=== PATIENT | female | born 1980 | race Two or more races ===

== ENCOUNTER → 2016-06-25 | Outpatient (CLI) | payer BC ==
[2016-06-25 14:03] LABS: Basophils # (A) 0.1 k/uL (0-0.2); Basophils % (A) 1 %; CH 27.6; CHCM 31.9; Eosinophils # (A) 0.2 k/uL (0-0.7); Eosinophils % (A) 2 %; HCT 39.5 % (34.0-46.0); HDW 2.43; HGB 12.7 gm/dL (11.4-16.0); Luc # (Auto) 0.29; Luc % (Auto) 4; Lymphocytes # (A) 2.3 k/uL (1.0-4.8); Lymphocytes % (A) 34 %; MCH 27.8 pg (25.0-35.0); MCHC 32.1 g/dL (31.0-37.0); MCV 86.8 fL (80.0-100.0); Monocytes # (A) 0.3 k/uL (0-1.0); Monocytes % (A) 5 %; Neutrophils # (A) 3.8 k/uL (1.3-7.7); Neutrophils % (A) 54 %; RBC 4.55 m/uL (3.80-5.40); WBC (Perox) 7.26
== END | disposition home or self-care (01) ==
LOC: LABPAT 12:07
PROVIDERS: ATTEND Obstetrics & Gynecology
DX: Z01.818 Encounter for other preprocedural examination (principal)
CPT/HCPCS: 85025

== ENCOUNTER 2016-07-01 06:19 | Day surgery (SDC) | payer BC ==
[2016-06-27 15:55] VITALS: BMI 19.5
--- NOTE | 2016-06-30 07:52 | P.HPOB ---
History of Present Illness H&P Date: 06/30/16 Chief Complaint: High grade pap smear. This patient is a pleasant 35yr old female who has had 2 pap smears that could not rule out high grade cervical dysplasia ( and ). Colposcopy only demonstrated SAMANTHA I. She now presents for colposcopy and LEEP excision of the cervix due to this discrepancy. Review of Systems Constitutional: Denies chills, Denies fever Ears, nose, mouth and throat: Denies headache, Denies sore throat Cardiovascular: Denies chest pain, Denies shortness of breath Respiratory: Denies cough Gastrointestinal: Denies abdominal pain, Denies diarrhea, Denies nausea, Denies vomiting Genitourinary: Reports as per HPI Musculoskeletal: Denies myalgias Past Medical History Past Medical History: Eye Disorder Additional Past Medical History / Comment(s): Jajw-Anlpjhwz-Xyodjh syndrome, bilateral (non-genetic) History of Any Multi-Drug Resistant Organisms: None Reported Past Surgical History: Breast Surgery Additional Past Surgical History / Comment(s): Patient has had bilateral breast augmentation surgery, right breast biopsy Past Anesthesia/Blood Transfusion Reactions: No Reported Reaction Past Psychological History: No Psychological Hx Reported Smoking Status: Never smoker Past Alcohol Use History: None Reported Past Drug Use History: None Reported - Past Family History Mother Family Medical History: No Reported History Medications and Allergies Home Medications Medication Instructions Recorded Confirmed Type Multivit with Calcium,Iron,Min 1 each PO DAILY 06/27/16 06/27/16 History [Women's Multivitamin] Allergies Allergy/AdvReac Type Severity Reaction Status Date / Time No Known Allergies Allergy Verified 06/27/16 14:42 Exam - OBG Physical Exam Abdomen: bowel sounds normal, no diffuse tenderness, no bruit present, no guarding noted, no hepatomegaly, no splenomegaly, no mass Vulva: both: normal Vagina: normal moisture, no discharge Cervix: no lesion, no discharge Uterus: normal size, normal contour Adnexa: both: normal Results Pap smears showed LGSIL, could not rule out HGSIL times 2. Colpo showed ectocervical SAMANTHA I. Assessment and Plan (1) Pap smear cannot exclude high grade squamous intraepithelial lesion (ASC-H) Narrative/Plan: This is a pleasant 35 yr female with possible HGSIL on pap times 2, with discrepant colposcopy. Plan is to proceed with colposcopy and LEEP excision for the endo and ectocervix. I have discussed this surgery in detail with the patient, including the risks: infection, bleeding, possible cervical incompetence with future loss. All of the patients questions were answered and a written consent obtained. Status: Chronic
[~2016-07-01 06:19] MED LIST: DEXAMETHASONE SOD PHOSPHATE 10 MG/ML 1 ML VIAL IV ONE; HYDROmorphone 1 MG/ML 1 ML SYRINGE IVP PRN; LACTATED RINGERS 1,000 ML IV SCH; ONDANSETRON 4 MG/2 ML VIAL IVP ONE; Pre Op ABX Message 1 EACH MISC MISCELLANE ONE
[2016-07-01] MEDS ORDERED: LIDOCAINE 1% 20 ML VIAL (10MG/ML) FOR IV START INTRADERMA ONE (06:41)
[2016-07-01] MEDS ORDERED: PROPOFOL 10 MG/ML 20 ML VIAL IV ONE (07:21)
[2016-07-01] MEDS ORDERED: fentaNYL (PF) 50 MCG/ML 2 ML AMP ONE (07:21)
[2016-07-01] MEDS ORDERED: MIDAZOLAM 2 MG/2 ML VIAL ONE (07:21)
[2016-07-01] MEDS ORDERED: LIDOCAINE 1% INJ 10MG/ML (20 ML MDV) ONE (07:21)
[2016-07-01] MEDS ORDERED: FERRIC SUBSULFATE (MONSELS) JAR TOPICAL ONE (07:42)
[2016-07-01] MEDS ORDERED: IODINE/POTASS IOD (LUGOLS) BTL TOPICAL ONE (07:42)
--- NOTE | 2016-07-01 07:49 | P.OP ---
Date of Procedure: 07/01/16 Preoperative Diagnosis: High-grade cervical dysplasia on a Pap smear with discrepant colposcopy Postoperative Diagnosis: Same Procedure(s) Performed: Colposcopy with LEEP excision of the ectocervix endocervix. Anesthesia: MAC Surgeon: Chase Bonilla Estimated Blood Loss (ml): 10 Urine output (ml): 25 Pathology: other (Ectocervix and endocervix.) Condition: stable Disposition: PACU Indications for Procedure: Please see dictated H&P for intimate details of this patient's admission. Brief summary this is a pleasant 35-year-old 1 para 1 female with low- grade cervical dysplasia on colposcopy however with 2 Pap smears that could not rule out high-grade changes. Patient now presents for LEEP excision of this area due to these discrepancies. Patient does understand the surgery and risks including risks of infection, bleeding, possible cervical incompetence if she does become in the future. All the patient's questions are answered written consent is obtained. Description of Procedure: This patient is taken to the operating room where she is laid in the supine position. She subsequently goes under general mask anesthesia without incident. With an adequate level of anesthesia she's placed in the dorsal lithotomy position. She has a vaginal perineal prep and drape. The bladder is drained at this time for 25 mL of clear urine. I place a laser speculum into the vagina. Colposcopy is then performed area of abnormality is demarcated. Using a large LEEP loop I excise the transformation zone. A second pass of the small LEEP loop is done. Cauterization is done of the ectocervix endocervical margins. Hemostasis is noted this time. I Did Pl., Monsel solution on the cervix for added hemostasis. All counts are correct 3. No complications. Patient is taken to the recovery room in satisfactory condition.
[2016-07-01 08:06] VITALS: TEMP 97
[2016-07-01 08:26] VITALS: RESP 16
[2016-07-01 09:12] VITALS: BP 116/74; PULSE 55
== END 2016-07-01 10:02 | disposition home or self-care (01) ==
LOC: OR 06:19
PROVIDERS: ATTEND Obstetrics & Gynecology
DX: R87.613 High grade squamous intraepithelial lesion on cytologic smear of cervix (HGSIL) (principal); Z79.899 Other long term (current) drug therapy
CPT/HCPCS: 57460; 81025; 88342; 88307; 88341; J2250; J1100; J2405; J2001; J3010; J2704

== ENCOUNTER → 2017-11-19 | Outpatient (CLI) | payer BC ==
--- NOTE | 2017-11-19 18:00 | MM ---
Reason for exam: history of breast augmentation, asymptomatic. History: Patient had first child at age 34. MG 3D Screen Mammo Imp/Cad Bilateral CC, MLO, and ID view(s) were taken. No prior studies available for comparison. The breast tissue is extremely dense which could obscure a lesion on mammography. No suspicious abnormality. Bilateral prepecteral silicone implants present. ASSESSMENT: Negative, BI-RAD 1 RECOMMENDATION: Routine screening mammogram of both breasts in 1 year.
== END | disposition home or self-care (01) ==
LOC: RADMAMWWP 15:20
PROVIDERS: ATTEND Obstetrics & Gynecology
DX: Z12.31 Encounter for screening mammogram for malignant neoplasm of breast (principal)
CPT/HCPCS: 77063; 77067

== ENCOUNTER → 2018-05-21 | Outpatient (CLI) | payer BC ==
[2018-05-21 09:19] LABS: HCT 38.6 % (34.0-46.0); HGB 12.2 gm/dL (11.4-16.0); MCH 25.3 pg (25.0-35.0); MCHC 31.6 g/dL (31.0-37.0); Mean Platelet Volume 7.2; Platelet Count 229 k/uL (150-450); RBC 4.83 m/uL (3.80-5.40); RDW 15.5 % (11.5-15.5); WBC 5.2 k/uL (3.8-10.6)
[2018-05-21 09:47] LABS: Appearance,Urine Clear (Clear); Bilirubin,Urine Negative (Negative); Blood,Urine Negative (Negative); Color,Urine Light Yellow; Glucose,Urine (UA) Negative (Negative); Ketones,Urine Negative (Negative); Leukocyte Esterase,Urine Moderate (Negative); Mucus,Urine Rare /hpf; Nitrite,Urine Negative (Negative); PH, Urine 6.5 (5.0-8.0); Protein,Urine Negative (Negative); Specific Gravity,Urine 1.005 (1.001-1.035); Squamous Epithelial Cell,Urine 1 /hpf (0-4); Urobilinogen,Urine <2.0 mg/dL (<2.0); WBC,Urine 7 /hpf (0-5)
[2018-05-21 17:56] LABS: Albumin 4.2 g/dL (3.80-4.90); Albumin/Globulin Ratio 1.31 (1.60-3.17); Anion Gap 5.7 mmol/L (4.00-12.00); Calcium 9.1 mg/dL (8.7-10.3); Carbon Dioxide 27.3 mmol/L (21.6-31.8); Globulin 3.2 g/dL (1.6-3.3); LDL Cholesterol,Calculated 96.2 mg/dL (0.0-131.0); Potassium 4.2 mmol/L (3.5-5.5); Total Bilirubin 0.6 mg/dL (0.2-1.2); Total Protein 7.4 g/dL (6.2-8.2); VLDL Calculation 13.8 mg/dL (5.00-40.00)
== END ==
LOC: LABWHC1 08:03
PROVIDERS: ATTEND Family Medicine
DX: Z00.00 Encounter for general adult medical examination without abnormal findings (principal)
CPT/HCPCS: 36415; 80053; 80061; 81001; 85027

== ENCOUNTER → 2019-01-10 | Outpatient (CLI) | payer BC ==
--- NOTE | 2019-01-11 10:31 | MM ---
Reason for exam: screening (asymptomatic). Last mammogram was performed 1 year and 2 months ago. History: Patient had first child at age 34. Pre-pectoral silicone gel implants in both breasts, September 2012. Physical Findings: A clinical breast exam by your physician is recommended on an annual basis and results should be correlated with mammographic findings. MG Screening Mammo Implant/CAD Bilateral CC, MLO, and ID view(s) were taken. Prior study comparison: November 19, 2017, bilateral MG 3d screen mammo imp/cad. The breast tissue is extremely dense which could obscure a lesion on mammography. No suspicious abnormality. Bilateral prepectoral silicone implants. No significant changes when compared with prior studies. ASSESSMENT: Negative, BI-RAD 1 RECOMMENDATION: Routine screening mammogram of both breasts in 1 year.
== END | disposition home or self-care (01) ==
LOC: RADMAMWWP 10:35
PROVIDERS: ATTEND Obstetrics & Gynecology
DX: Z12.31 Encounter for screening mammogram for malignant neoplasm of breast (principal)
CPT/HCPCS: 77067

== ENCOUNTER → 2020-04-16 | Outpatient (CLI) | payer BC ==
--- NOTE | 2020-04-17 10:18 | MM ---
Reason for exam: screening (asymptomatic). Last mammogram was performed 1 year and 3 months ago. History: Patient had first child at age 34. Pre-pectoral silicone gel implants in both breasts, September 2012. Physical Findings: A clinical breast exam by your physician is recommended on an annual basis and results should be correlated with mammographic findings. MG Screening Mammo Implant/CAD Bilateral CC, MLO, and ID view(s) were taken. Prior study comparison: January 10, 2019, bilateral MG screening mammo implant/CAD. November 19, 2017, bilateral MG 3d screen mammo imp/cad. The breast tissue is extremely dense which could obscure a lesion on mammography. No significant changes when compared with prior studies. ASSESSMENT: Benign, BI-RAD 2 RECOMMENDATION: Routine screening mammogram of both breasts in 1 year.
== END | disposition home or self-care (01) ==
LOC: RADMAMWWP 12:43
PROVIDERS: ATTEND Obstetrics & Gynecology
DX: Z12.31 Encounter for screening mammogram for malignant neoplasm of breast (principal)
CPT/HCPCS: 77067

== ENCOUNTER → 2021-04-30 | Outpatient (CLI) | payer BC ==
--- NOTE | 2021-05-01 10:17 | MM ---
Reason for exam: screening (asymptomatic). Last mammogram was performed 1 year ago. History: Patient had first child at age 34. Pre-pectoral silicone gel implants in both breasts, September 2012. Physical Findings: A clinical breast exam by your physician is recommended on an annual basis and results should be correlated with mammographic findings. MG Screening Mammo Implant/CAD Bilateral CC, MLO, and ID view(s) were taken. Prior study comparison: April 16, 2020, bilateral MG screening mammo implant/CAD. January 10, 2019, bilateral MG screening mammo implant/CAD. The breast tissue is extremely dense which could obscure a lesion on mammography. Bilateral implants are intact. No significant changes when compared with prior studies. ASSESSMENT: Negative, BI-RAD 1 RECOMMENDATION: Routine screening mammogram of both breasts in 1 year.
== END | disposition home or self-care (01) ==
LOC: RADMAMWWP 13:37
PROVIDERS: ATTEND Obstetrics & Gynecology
DX: Z12.31 Encounter for screening mammogram for malignant neoplasm of breast (principal)
CPT/HCPCS: 77067

== ENCOUNTER → 2022-05-05 | Outpatient (CLI) | payer BC ==
--- NOTE | 2022-05-06 08:56 | MM ---
Reason for Exam: Screening (asymptomatic). Last screening mammogram was performed 12 month(s) ago. Patient History: Menarche at age 13. First Full-Term at age 34. Late child-bearing (after 30). Patient has history of breast feeding. 09/2012, Bilateral Implants. Risk Values: Kaylin 5 year model risk: 0.9%. NCI Lifetime model risk: 12.1%. Prior Study Comparison: 01/10/2019 Bilateral Screening Mammogram, [facility]. 04/16/2020 Bilateral Screening Mammogram, [facility]. 04/30/2021 Bilateral Screening Mammogram, [facility]. Tissue Density: The breast tissue is extremely dense which could obscure a lesion on mammography. Findings: Analyzed By CAD. There is no suspicious group of microcalcifications or new suspicious mass in either breast. Bilateral implants are intact. Overall Assessment: Benign, BI-RAD 2 Management: Screening Mammogram of both breasts in 1 year. A clinical breast exam by your physician is recommended on an annual basis and results should be correlated with mammographic findings. Electronically signed and approved by: Kristopher Mars D.O.
== END | disposition home or self-care (01) ==
LOC: RADMAMWWP 16:16
PROVIDERS: ATTEND Obstetrics & Gynecology
DX: Z12.31 Encounter for screening mammogram for malignant neoplasm of breast (principal)
CPT/HCPCS: 77067

== ENCOUNTER → 2023-05-12 | Outpatient (CLI) | payer BC ==
--- NOTE | 2023-05-13 14:35 | MM ---
Reason for Exam: Screening (asymptomatic). Last mammogram was performed 1 year(s) and 1 month(s) ago. Patient History: Menarche at age 13. First Full-Term at age 34. Late child-bearing (after 30). Patient has history of breast feeding. 09/2012, Bilateral Implants. Last menstrual period: 04/29/2023 Risk Values: Kaylin 5 year model risk: 1.0%. NCI Lifetime model risk: 12.0%. Prior Study Comparison: 11/19/2017 Bilateral Screening Mammogram, [facility]. 01/10/2019 Bilateral Screening Mammogram, [facility]. 04/16/2020 Bilateral Screening Mammogram, [facility]. 04/30/2021 Bilateral Screening Mammogram, [facility]. 05/05/2022 Bilateral MG screening mammo implant/CAD, [facility]. Tissue Density: The breast tissue is heterogeneously dense. This may lower the sensitivity of mammography. Findings: Analyzed By CAD. Bilateral breast implants. There is no suspicious group of microcalcifications or new suspicious mass. Overall Assessment: Negative, BI-RAD 1 Management: Screening Mammogram of both breasts in [address] [facility] will attempt to contact patient to return for supplemental views and ultrasound if indicated. Patient should continue monthly self-breast exams. A clinical breast exam by your physician is recommended on an annual basis. This exam should not preclude additional follow-up of suspicious palpable abnormalities. Note on Kaylin scores and lifetime risk: 1. A Kaylin score greater than 3% is considered moderate risk. If this is the case, consider specialist referral to assess eligibility for a risk reducing agent. 2. If overall lifetime risk for the development of breast cancer is 20% or higher, the patient may qualify for future screening with alternating mammogram and breast MRI. Electronically signed and approved by: Hossein Harrison DO
== END | disposition home or self-care (01) ==
LOC: RADMAMWWP 13:49
PROVIDERS: ATTEND Obstetrics & Gynecology
DX: Z12.31 Encounter for screening mammogram for malignant neoplasm of breast (principal); Z98.82 Breast implant status
CPT/HCPCS: 77067